=== PATIENT | female | born 1965 | race Caucasian/White ===

== ENCOUNTER 2019-10-19 21:54 | Inpatient (IN) | payer OTHER ==
[~2019-10-19] VITALS: Ht 160 cm; Wt 56.7 kg
[2019-10-19] MEDS ORDERED: ZOLOFT100 MG (22:09)
[2019-10-19] MEDS ORDERED: PROTONIX40 MG (22:10)
[2019-10-19] MEDS ORDERED: CLONAZEPAM1 MG (22:10)
[2019-10-19] MEDS ORDERED: ZANTAC150 MG (22:10)
[2019-10-19] MEDS ORDERED: NEURONTIN800 MG (22:10)
--- NOTE | 2019-10-19 22:17 | NUR ---
SE RECIBE PTE A CUAL REFIRE PRESENTAR OSMAR DOLOR ABDOMINAL Y VARIOS EPISODIOS DE VOMITOS. PTE REFIERE CHITRA SIDO ATENDIDA VARIAS VECES EN CDT CERCA DE SOSA HOGAR LUZMARIA LA MISMA NO MEJORAR.
--- NOTE | 2019-10-20 00:10 | NUR ---
SE ORIENTA A PACIENTE SOBRE TRATAMIENTO. SE NAEL MUESTRAS DE LABORATORIO ORDENADAS. SE CANALIZA CON AREA DE VENOPUNCION TONYA DE EDEMA O ENROJECIMIENTO. SE ADMINISTRAN MEDICAMENTOS ORDENADOS.SE MANTIENE EN OBSERVACION POR CAMBIOS.
--- NOTE | 2019-10-20 04:03 | NUR ---
RE EVALUADA POR EN TURNO DR.VALE SAHNI COLOCA ORDEN MEDICA. SE ORIENTA PACIENTE Y FAMILIAR SOBRE TRATAMIENTO ORDENADO. SE ADMINISTRAN MEDICAMENTOS KEN ORDENADO,BAJO MEDIDAS ASEPTICAS.PACIENTE NO PRESENTA REACCION ADVERSA.
--- NOTE | 2019-10-20 08:21 | NUR ---
SE RECIBE PTE FEMENINA ALERTA Y ORIENTADA EN [place] ESFERAS, PRESENTA BUEN PATRON RESPIRATORIO, REFIERE DOLOR, SE NOTIFICA A DR. WELLS. VENOPUNCION PATENTE TONYA DE EDEMA Y ERITEMA, IVFS 0.9NSS BAJANDO 166ML/HR. PTE EN LEVI BAJA CON BARANDAS ELEVADAS Y TIMBRE ACCESIBLE. PENDIENTE RE EVALUACION MEDICA.
--- NOTE | 2019-10-20 09:16 | NUR ---
PTE RE EVALUADA POR DR. WELLS EL CUAL ORDENA TRATAMIENTO. SE ORIENTA PTE SOBRE TRATAMIENTO ORDENADO, REFIERE COMPRENDER. SE COLECTAN MUESTRAS DE MANAN, BAJO MEDIDAS ASEPTICAS. SE ADMINISTRAN MEDICAMENTOS, BAJO MEDIDAS ASEPTICAS, KEN ORDEN MEDICA. SE ENTREGA CONTRASTE ORAL, SE ORIENTA PTE A ERIC UN VASO CADA 15 MIN Y AL CULMINAR NOTIFICAR A ENFERMERIA, PTE REFIERE COMPRENDER.
--- NOTE | 2019-10-20 14:17 | NUR ---
SE INSERTA NGT F#16 EN FOSA NASAL L+, BAJO MEDIDAS ASEPTICAS, KEN ORDEN MEDICA. SE VERIFICA POSICION POR MEDIO DE AUSCULTACION. SE OBSERVA RESIDUAL DE 50ML APROXIMADAMENTE, SECRECIONES COLOR AMARILLO. SE CONCETA PTE A SUCCION INTERMITENTE BAJA. PTE TOLERA PROCEDIMIENTO. SE MANTIENE EN OBSERVACION POR CAMBIOS SIGNIFICATIVOS.
--- NOTE | 2019-10-20 15:05 | NUR ---
PACIENTE ALERTA Y ORIENTADA X3. EN POSICION SEMI-SENTADA EN LEVI CON BARANDAS ELEVADAS ACOMPANADA POR FAMILIAR. PACIENTE CON TUBO NASOGASTRICO EN RUBIN STANTON A SUCCION INTERMITENTE BAJA. IV FLUID PATENTE Y TONYA DE EDEMA Y ERITEMA. RECIBIENDO 0.9 NSS DE 1,000ML BAJANDO A 166ML/HR. PACIENTE CONSULTADA CON DR. BOB AMBROCIO. SE MANTIENE BAJO OBSERVACION POR CAMBIOS SIGNIFICATIVOS.
[2019-10-25] MEDS ORDERED: PROTONIX40 MG PO (12:27)
== END 2019-10-25 13:11 | disposition home or self-care (01) | DRG 336 ==
LOC: ER 21:54 → SURH 10-20 18:42 → SEC-K 10-20 18:42 → O/R 10-21 12:29 → OB/GYN 10-21 13:34 → O/R 10-21 14:48 → SURH 10-21 17:59
PROVIDERS: ADMIT Surgery
PROC: 0D9670Z Drainage of Stomach with Drainage Device, Via Natural or Artificial Opening (ICD-10-PCS; 2019-10-20)
PROC: BW21ZZZ Computerized Tomography (CT Scan) of Abdomen and Pelvis (ICD-10-PCS; 2019-10-20)
PROC: BW40ZZZ Ultrasonography of Abdomen (ICD-10-PCS; 2019-10-20)
PROC: 0DNW0ZZ Release Peritoneum, Open Approach (ICD-10-PCS; principal; 2019-10-21 10:00)
PROC: 4A1 Measurement and Monitoring, Physiological Systems, Monitoring (ICD-10-PCS; 2019-10-24)
DX: K56.50 Intestinal adhesions [bands], unspecified as to partial versus complete obstruction (principal); R18.8 Other ascites; K29.60 Other gastritis without bleeding; M79.7 Fibromyalgia; F41.0 Panic disorder [episodic paroxysmal anxiety]; E03.9 Hypothyroidism, unspecified